=== PATIENT | male | born 1990 | race Caucasian/White ===

== ENCOUNTER 2022-09-26 18:30 | Emergency (ER) | payer OTHER ==
[2022-09-26 18:49] VITALS: PULSE 86; RESP 16
--- NOTE | 2022-09-26 19:12 | ED ---
Lower Extremity Injury HPI - General Chief Complaint: Extremity Injury, Lower Stated Complaint: L Foot Myra toe dropped something on it Time Seen by Provider: 09/26/22 18:57 Source: patient, RN notes reviewed Mode of arrival: ambulatory Limitations: no limitations - History of Present Illness Initial Comments: This is a 31-year-old male who presents to the emergency department for an injury to the left pinky toe. States that yesterday he dropped something on this and subsequently broke his toenail. States that he is concerned about getting an infection. Denies being in any pain at this time. He is able to ambulate, states that pain only occurs if he tries to touch the toenail that broke. Denies any fevers, chills, sore throat, cough, dyspnea, chest pain, palpitations, abdominal pain, nausea, vomiting, diarrhea, back pain, or headaches. MD Complaint: other (left pinky toe injury) Onset/Timin -: days(s) - Related Data Allergies Allergy/AdvReac Type Severity Reaction Status Date / Time No Known Allergies Allergy Verified 09/26/22 18:49 Review of Systems ROS Statement: Those systems with pertinent positive or pertinent negative responses have been documented in the HPI. ROS Other: All systems not noted in ROS Statement are negative. Past Medical History Past Medical History: No Reported History History of Any Multi-Drug Resistant Organisms: None Reported Past Surgical History: No Surgical Hx Reported Past Psychological History: No Psychological Hx Reported Smoking Status: Current every day smoker Past Alcohol Use History: None Reported Past Drug Use History: None Reported General Exam Limitations: no limitations General appearance: alert, in no apparent distress Head exam: Present: atraumatic, normocephalic, normal inspection Respiratory exam: Present: normal lung sounds bilaterally. Absent: respiratory distress, wheezes, rales, rhonchi, stridor Cardiovascular Exam: Present: regular rate, normal rhythm, normal heart sounds. Absent: systolic murmur, diastolic murmur, rubs, gallop, clicks Extremities exam: Present: other (Minor swelling to the left pinky toe. The toenail is split in half. No active bleeding.) Neurological exam: Present: alert, oriented X3, CN II-XII intact Psychiatric exam: Present: normal affect, normal mood Course Vital Signs 09/26/22 09/26/22 18:45 20:15 Temperature 98.8 F 98.4 F Pulse Rate 86 86 Respiratory 16 16 Rate Blood Pressure 129/84 126/80 O2 Sat by Pulse 97 97 Oximetry Medical Decision Making - Medical Decision Making This is a 31-year-old male who presents to the emergency department for an injury to the left pinky toe. Was pt. sent in by a medical professional or institution? @ -No Did you speak to anyone other than the patient for history? @ -No Did you review nursing and triage notes? @ -Yes, and I agree, it is accurate with regards to the patient's symptoms. Were old charts reviewed? @ -No Differential Diagnosis? @ -Differential Toe Injury: Fracture, dislocation, contusion, sprain, this is not meant to be an all-inclusive list. EKG interpreted by me (3pts min.)? @ -Not obtained X-rays interpreted by me (1pt min.)? @ -X-ray of the left pinky toe obtained. My interpretation identifies no acute fractures. CT interpreted by me (1pt min.)? @ -Not obtained U/S interpreted by me (1pt. min.)? @ -Not obtained What testing was considered but not performed? (CT, X-rays, U/S, labs)? Why? @ -None What meds were considered but not given? Why? @ -None Did you discuss the management of the patient with other professionals? @ -No Did you reconcile home meds? @ -No Was smoking cessation discussed for >3mins.? @ -No Was critical care preformed (if so, how long)? @ -No Were there social determinants of health that impacted care today? How? (Homelessness, low income, unemployed, alcoholism, drug addiction, transportation, low edu. Level, literacy, decrease access to med. care, snf, rehab)? @ -No Was there de-escalation of care discussed even if they declined? (Discuss DNR or withdrawal of care, Hospice)? @ -No What co-morbidities impacted this encounter? (DM, HTN, Smoking, COPD, CAD, Cancer, CVA, Hep., AIDS, mental health diagnosis, sleep apnea, morbid obesity)? @ -None Was patient admitted / discharged? @ -Discharged. X-ray of the left pinky toe obtained revealing no acute process . The toenail itself is split in half, but still well attached to the toe. Patient is not exhibiting any distress at this time and is still able to ambulate. Advised ibuprofen and Tylenol as needed for discomfort. Undiagnosed new problem with uncertain prognosis? @ -None Drug Therapy requiring intensive monitoring for toxicity (Heparin, Nitro, Insulin, Cardizem)? @ -None Were any procedures done? @ -None Diagnosis/symptom? @ -Left pinky toe injury Acute, or Chronic, or Acute on Chronic? @ -Acute Uncomplicated (without systemic symptoms) or Complicated (systemic symptoms)? @ -Uncomplicated Side effects of treatment? @ -None Exacerbation, Progression, or Severe Exacerbation] @ -Not applicable Poses a threat to life or bodily function? @ -No Return precautions reviewed in depth, the patient is instructed to return to the emergency department with any new, worsening, or concerning symptoms. Patient verbalized understanding. This case was discussed in detail with the attending ED physician, Dr. Tian. Presentation, findings, and treatment plan discussed in detail as well. - Radiology Data Radiology results: report reviewed, image reviewed Disposition Clinical Impression: Toenail avulsion, Crushing injury of toe of left foot Disposition: HOME SELF-CARE Instructions (If sedation given, give patient instructions): Nail Avulsion (ED) Additional Instructions: Return to the emergency department with any new, worsening, or concerning symptoms. Alternate with ibuprofen and Tylenol as needed for pain relief. Keep the toenail covered to avoid ripping off part of the toenail causing further injury. Follow up with your primary care provider in 1-2 days. Is patient prescribed a controlled substance at d/c from ED?: No Referrals: None,Stated [Primary Care Provider] - 1-2 days
--- NOTE | 2022-09-26 19:50 | XR ---
EXAMINATION TYPE: XR toes LT DATE OF EXAM: 09/26/2022 7:26 PM INDICATION: Patient age:Male; 31 years old; Reason for study: Injury to left pinky toe; [facility]. COMPARISON: None TECHNIQUE: The left toe was examined in the AP, oblique, and lateral projections. FINDINGS: No evidence of any acute osseous pathology. No evidence of soft tissue swelling. Joints are preserve d. IMPRESSION: No evidence of acute fracture.
[2022-09-26 20:19] VITALS: BP 126/80; TEMP 98.4
== END 2022-09-26 20:20 | disposition home or self-care (01) ==
LOC: EC 18:30
DX: S97.102A Crushing injury of unspecified left toe(s), initial encounter (principal); F17.200 Nicotine dependence, unspecified, uncomplicated; W20.8XXA Other cause of strike by thrown, projected or falling object, initial encounter
CPT/HCPCS: 99283